=== PATIENT | male | born 1940 | race Caucasian/White ===

== ENCOUNTER → 2019-12-31 | Outpatient (CLI) | payer MEDICARE ==
[~2019-12-31] MED LIST: ASPI-1497 MT; ATEN-42 MT; GLIP10TA10 PO; LOSA25TA26 MT; METF-416 MT; SIMV-43 MT
== END | disposition home or self-care (01) ==
LOC: LAB 08:20
PROVIDERS: ATTEND Specialist
DX: R05 Cough (principal); Z20.828 Contact with and (suspected) exposure to other viral communicable diseases
CPT/HCPCS: U0003-CS